=== PATIENT | male | born 1990 | race Caucasian/White ===

== ENCOUNTER 2018-08-16 11:37 | Emergency (ER) | payer SELFPAY | END 2018-08-16 12:20 | disposition home or self-care (01) | LOC: MADERS 11:37 | DX: H65.92 Unspecified nonsuppurative otitis media, left ear (principal); F17.210 Nicotine dependence, cigarettes, uncomplicated; F41.9 Anxiety disorder, unspecified; Z71.6 Tobacco abuse counseling | CPT/HCPCS: 99406 ==